=== PATIENT | male | born 1950 | race Caucasian/White ===

== ENCOUNTER 2020-05-01 14:26 | Outpatient (CLI) | payer MEDICARE ==
[2020-05-01 14:57] LABS: BASOPHILS # (AUTO) 0.05 x10^3/uL (0-0.1); BASOPHILS % (AUTO) 1 % (0-1); EOSINOPHILS # (AUTO) 0.21 x10^3/uL (0-0.4); EOSINOPHILS % (AUTO) 2 % (1-7); LYMPHOCYTES # (AUTO) 2.91 x10^3/uL (1-3.4); LYMPHOCYTES % (AUTO) 30 % (22-44); MD NO; MEAN CORPUSCULAR HGB CONC 33.1 g/dL (33.2-36.2); MEAN PLATELET VOLUME 8.4 fL (7.4-10.4); MONOCYTES # (AUTO) 0.58 x10^3/uL (0.2-0.8); MONOCYTES % (AUTO) 6 % (2-9); NEUTROPHILS % (AUTO) 62 % (42-75); PLATELET COUNT 282 x10^3/uL (130-400); RED BLOOD COUNT 5.06 x10^6/uL (4.38-5.82); RED CELL DISTRIBUTION WIDTH 15.7 % (9.4-14.8)
[2020-05-01 15:07] LABS: ALANINE AMINOTRANSFERASE 21 U/L (12-78); ALBUMIN 3.7 g/dL (3.4-5.0); ANION GAP 5 mmol/L (5-15); CALCIUM 8.9 mg/dL (8.5-10.1); CHLORIDE 114 mmol/L (98-107); CREATININE 1.06 mg/dL (0.7-1.3)
[2020-05-01] MEDS ORDERED: ATOR-2 PO (15:08)
[2020-05-01] MEDS ORDERED: PARO20TA4 PO (15:08)
[2020-05-01] MEDS ORDERED: CHOL10003 PO (15:08)
[2020-05-01] MEDS ORDERED: OMEP-110 PO (15:08)
[2020-05-01] MEDS ORDERED: ASPI81TA45 PO (15:08)
[2020-05-01] MEDS ORDERED: AMLO1CAP6 PO (15:08)
[2020-05-01] MEDS ORDERED: LEVOTHYROXINE PO (15:08)
[2020-05-01] MEDS ORDERED: TRAM50TA2 PO (15:08)
[2020-05-01 15:10] LABS: ALKALINE PHOSPHATASE 73 U/L (45-117); BILIRUBIN,TOTAL 0.4 mg/dL (0.2-1.0); TOTAL PROTEIN 7.6 g/dL (6.4-8.2)
[2020-05-01 15:13] LABS: INTERNATIONAL NORMALIZED RATIO 0.94 (0.93-1.1)
[2020-05-09] MEDS ORDERED: OXYC5TAB3 PO (17:36)
[2020-05-09] MEDS ORDERED: TRAM50TA2 PO (17:37)
[2020-05-09] MEDS ORDERED: MELO7.5T31 PO (17:37)
== END 2020-05-01 23:59 | disposition home or self-care (01) ==
LOC: STAR 14:26
PROVIDERS: ATTEND Orthopaedic Surgery
DX: Z01.818 Encounter for other preprocedural examination (principal); M16.11 Unilateral primary osteoarthritis, right hip; Z79.01 Long term (current) use of anticoagulants
CPT/HCPCS: 36415; 80053; 83036; 85025; 85610; 85730; 87081; 93005